=== PATIENT | female | born 1945 | race Caucasian/White ===

== ENCOUNTER 2017-06-12 09:16 | Emergency (ER) | payer OTHER ==
[~2017-06-12] VITALS: Ht 160 cm; Wt 65.9 kg
[~2017-06-12 09:16] MED LIST: NOHOMEMEDS
[2017-06-12] MEDS ORDERED: NORCO 5/3251 TABLET PO (13:10)
[2017-06-12 14:24] VITALS: BP 138/74
== END 2017-06-12 14:27 | disposition home or self-care (01) ==
LOC: EME 09:16
DX: S52.502A Unspecified fracture of the lower end of left radius, initial encounter for closed fracture (principal); S52.612A Displaced fracture of left ulna styloid process, initial encounter for closed fracture; W07.XXXA Fall from chair, initial encounter; F03.90 Unspecified dementia, unspecified severity, without behavioral disturbance, psychotic disturbance, mood disturbance, and anxiety
CPT/HCPCS: 73100; 73110; 99281; 99284; J2405; J3010

== ENCOUNTER → 2017-06-16 | Outpatient (CLI) | payer MEDICARE, OTHER ==
[~2017-06-16] MED LIST changes: +NORCO 5/3251 TABLET PO
== END | disposition home or self-care (01) ==
LOC: CDC 10:20
DX: S52.532A Colles' fracture of left radius, initial encounter for closed fracture (principal); M25.532 Pain in left wrist
CPT/HCPCS: 93000

== ENCOUNTER 2017-06-24 09:39 | Day surgery (SDC) | payer OTHER ==
[~2017-06-24] VITALS: Ht 157.5 cm; Wt 67.1 kg
[~2017-06-24 09:39] MED LIST changes: +B COMPLEX #11 EACH PO; +CALCIUM 500-VI1 EAC1 PO; +GLUCOSAMINE-CH1 EA14 PO; +TUMS500 MG PO; +TYLENOL WITH C1 EACH PO
[2017-06-24 10:04] VITALS: BP 165/76
[2017-06-24 16:10] VITALS: BP 169/80
[2017-06-24 17:10] VITALS: BP 152/80
[2017-06-24 17:53] VITALS: BP 154/72
== END 2017-06-24 17:53 | disposition home or self-care (01) ==
LOC: SDC 09:39
PROC: 0PSJ04Z Reposition Left Radius with Internal Fixation Device, Open Approach (ICD-10-PCS; principal; 2017-06-24)
DX: S52.572A Other intraarticular fracture of lower end of left radius, initial encounter for closed fracture (principal); S52.612A Displaced fracture of left ulna styloid process, initial encounter for closed fracture; W17.89XA Other fall from one level to another, initial encounter
CPT/HCPCS: 73100; 76000; C1713; J0690; J1170; J2250; J3010; Q0175; S0020